=== PATIENT | female | born 1960 | race African-American/Black ===

== ENCOUNTER → 2022-12-20 | Outpatient (CLI) | payer OTHER ==
[~2022-12-20] MED LIST: IOPAMIDOL 370 MG/ML 100 ML INFUS..BTL INJ ONE
[2022-12-20 13:12] LABS: CREATININE, SERUM 1.13 mg/dL (0.57-1.11)
== END ==
LOC: CT 12:04
PROVIDERS: ATTEND Internal Medicine Interventional Cardiology
DX: R07.9 Chest pain, unspecified (principal); I26.99 Other pulmonary embolism without acute cor pulmonale
CPT/HCPCS: 36415; 71260; 82565; 84520; Q9967